=== PATIENT | male | born 2000 | race Hispanic/Latino ===

== ENCOUNTER 2020-02-05 21:11 | Emergency (ER) | payer MEDICAID, SELFPAY ==
[2020-02-05 21:12] VITALS: BP 132/74; PULSE 118; RESP 16; TEMP 37.1; O2SAT 96; BMI 21.0
--- NOTE | 2020-02-05 21:27 | RAD_ITS ---
STUDY: X-RAY - LEFT SHOULDER REASON FOR EXAM: Male, 19 years old. left shoulder injury yesterday TECHNIQUE: 3 view(s) of the shoulder. COMPARISON: None. FINDINGS: The clavicle is fractured in the mid segment with mild superior angulation without displacement. AC joint is located. Glenohumeral joint is intact and located with intact proximal humerus. Left lung apex is clear. RAD/Shoulder min 2 Views IMPRESSION: Mid clavicular fracture. Electronically Signed: Dick Birch, at 21:49 EDT Tel , Service support ,
--- NOTE | 2020-02-05 21:33 | ED.VIS.GEN ---
History of Present Illness Chief Complaint: Upper Extremity Injury Informant: Patient Narrative: 19-year-old male presents with left shoulder pain. States that he was roughhousing with a friend last night whenever he picked him up and dropped him to the ground. States that he has had pain in his left shoulder since that time. States it is aching and worse with movement. States that he did take ibuprofen with minimal relief. The pain is an 8 out of 10. Denies any head trauma or loss of consciousness. Denies any sensory changes. Past Medical History - Allergies and Home Meds Allergies/Adverse Reactions: Allergies No Known Allergies Allergy (Verified 02/05/20 21:13) Primary Care Physician: Janna Khan NP-C [Primary Care Provider] - Past Medical History: None Surgical History: no surgical history Lives: With Family Smoking Status: Never smoker Alcohol: None Drugs: None Review of Systems General: Denies: Chills, Fever, Sweats Eyes: Denies: Visual changes - bilaterally, Diplopia ENT: Denies: Rhinorrhea, Sore throat Cardiovascular: Denies: Chest pain, Palpitations Respiratory: Denies: Dyspnea, Cough, Dyspnea on exertion Gastrointestinal: Denies: Abdominal pain, Nausea, Vomiting, Diarrhea, Melena, Hematochezia Genitourinary: Denies: Dysuria, Hematuria, Frequency Musculoskeletal: Reports: Arthralgias. Denies: Back pain, Extremity Pain Skin: Denies: Rash, Wounds Neurological: Denies: Headache, Weakness, Numbness Physical Exam Vital Signs/Narrative: Vital Signs Temp Pulse Resp BP Pulse Ox 02/05/20 21:12 98.8 F 118 H 16 132/74 H 96 Inital Vital Signs reviewed: Yes General: Well nourished, Well developed, No Acute Distress Head: Normocephalic, Atraumatic Eyes: Perrl, EOMI ENT: Moist mucous membranes, No rhinorrhea Neck: Supple, Nontender Cardiovascular: Regular rate, Regular rhythm, No murmurs Respiratory: No distress, CTA bilaterally, Chest nontender Abdomen: Soft, Nontender, Nondistended, Normal bowel sounds Back: Nontender, Normal Inspection Extremities: Nontender, No edema, - - Tenderness to palpation over the distal clavicular head. Full range of motion passively of the left shoulder. No overlying skin changes. No change in sensation. Skin: Normal color, No rash Neurological: Alert, Oriented x3, Cranial nerves II-XII grossly intact, Normal Strength, Normal Sensation Psychological: Normal affect, Normal Mood Diagnostic/Tx/Re-eval Clinical Impression(s) from Imaging Studies Shoulder X-Ray 02/05/20 21:27 IMPRESSION: Mid clavicular fracture. Electronically Signed: Dick Birch, at 21:49 EDT Tel , Service support , - Medical Decision Making Appears well and nontoxic. No evidence of head trauma. Evidence of clavicular fracture. No tenting of the skin. Patient was given 1 oxycodone. Arm was placed in a sling. He will follow-up with orthopedic surgery. Short prescription was written for pain medication. Asked to return for any new or worsening symptoms. Patient agreeable and discharged home in stable condition. ED Disposition - Plan for ED Patient: Disposition: Home or Assisted Living Diagnosis: Clavicle fracture Instructions: ED Clavicle Fracture Prescriptions: Oxycodone HCl/Acetaminophen [Percocet 5/325] 1 tablet PO Q6H PRN PRN 2 Days #6 tablet PRN Reason: Pain Score 6-10/10 Transmission Status: Received by [id number] Referrals: Janna Khan, TREVON-C [Primary Care Provider] - Tamiko Camacho DO [STAFF PHYSICIAN] -
[2020-02-05 22:09] VITALS: RESP 18
[2020-02-05] MEDS: oxyCODONE 5 MG Tablet PO (22:16)
== END 2020-02-05 22:21 | disposition home or self-care (01) ==
PROVIDERS: Emergency Provider Emergency Medicine; PCP Nurse Practitioner
DX: S42.018A Nondisplaced fracture of sternal end of left clavicle, initial encounter for closed fracture (principal); W04.XXXA Fall while being carried or supported by other persons, initial encounter; Y93.83 Activity, rough housing and horseplay; Y92.9 Unspecified place or not applicable; Y99.8 Other external cause status
CPT/HCPCS: 73030; 99283

== ENCOUNTER 2021-03-02 15:45 | Emergency (ER) | payer MEDICAID, SELFPAY ==
[2021-03-02 15:46] VITALS: BP 127/86; PULSE 75; RESP 14; TEMP 36.8; O2SAT 98; BMI 27.8
--- NOTE | 2021-03-02 16:04 | CT_ITS ---
STUDY: CT BRAIN WITHOUT CONTRAST REASON FOR EXAM: Male, 20 years old. altered mental status RADIATION DOSAGE (If Supplied By Facility): CTDIvol = ( 44.99 ) mGy, DLP = ( 846.73 ) mGycm TECHNIQUE: Transaxial CT imaging of the brain was performed without administration of intravenous contrast material. Individualized dose optimization techniques were used for this CT. COMPARISON: No relevant priors. FINDINGS: Normal soft tissue structures. Normal calvarium. Normal size ventricles and extra-axial spaces for the patient''s age. Normal white matter tracts of the cerebral hemispheres. Normal basal ganglia and thalami. Normal brainstem. Normal cerebellum. There is no intracranial hemorrhage. There are no findings of an acute ischemic infarction. Normal visualized paranasal sinuses. CT/Brain/Head without Contrast IMPRESSION: Normal unenhanced CT scan of the brain. Electronically Signed: Jace Hoyt MD ([place]) at 16:57 EDT , Service support ,
[2021-03-02 16:25] LABS: Absolute Lymphocyte Count 1.88 X10^3/uL (0.83-4.51); Absolute Neutrophil Count 2.9 X10^3/uL (2.0-7.7); Basophil# 0.05 X10^3/uL; Basophil% 0.9 % (0-1); Eosinophil# 0.05 X10^3/uL; Eosinophils% 0.9 % (0-5); Hematocrit 47.7 % (40-54); Hemoglobin 15.9 g/dL (13.0-16.5); Lymphocyte # 1.88 X10^3/ul (0.83-4.51); Lymphocyte % 34.7 % (19-41); Mean Corp Hgb Conc 33.3 g/dL (32-36); Mean Corpuscular Hgb 30.8 pg (27.0-32.0); Mean Corpuscular Volume 92.3 fL (80-94); Mean Platelet Vol. 9.7 fl (6.2-12.0); Monocyte# 0.58 X10^3/uL; Monocyte% 10.7 % (0-10); NRBC Flagged by Analyzer 0 % (0-5); Neutrophil # 2.85 X10^3/uL (2.7-7.7); Neutrophil % 52.6 % (47-70); Platelet Count 353 K/mm3 (150-450); RBC Distribution Width CV 12.6 % (11.6-14.6); RBC Distribution Width SD 43.1 fl (35.1-43.9); Red Blood Count 5.17 M/mm3 (4.6-6.2); White Blood Count 5.4 K/mm3 (4.4-11.0)
--- NOTE | 2021-03-02 16:25 | EDS_ITS ---
HPI HPI - Psych History of Present Illness Chief Complaint: Mental Health Informant: patient Narrative Narrative: 20-year-old male presents the emergency department with a chief complaint of intrusive thoughts. Patient's triage complaint is to rule out appendicitis but the patient states he made that up because this was too personal than he did when his friend here. He states that over the past week he has had extremely intrusive thoughts pretty much 24 hours a day. He is unsure if he is actually talking to a real human being or not. He notes that he was raised by his grandmother. His father was never around and his mother became addicted to opiates and has been in alf. He states he was never really allowed to talk about his feelings with his grandmother and always told him that being depressed and anxious is not real. He states that he has had some occasional thoughts of suicide but it is not something that he would consider acting upon but as a way to stop these thoughts today. He states that a couple months ago micaela orr did have a suicide plan of drowning. He denies any auditory or visual hallucinations. He denies any drug use. He is working a few hours a week at [employer]. Patient states he has been sleeping more than normal but it is difficult to get to bed. He went to urgent care as he did not know where to go and they referred him here. [facility] Home Medications NK 03/02/21 [History Last Taken Unknown] Allergy/AdvReac Type Severity Reaction Status Date / Time No Known Allergies Allergy Verified 03/02/21 15:47 Social History (Updated 03/02/21 @ 16:[address] Vinayak Aiken, DO) Smoking Status: Never smoker substance use type: does not use ROS ROS ED Constitutional Constitutional ED: Denies chills or weight loss Eyes Eyes: Denies change in vision or diplopia ENT ENT ED: Denies ear pain, rhinorrhea or sore throat Cardiovascular Cardiovascular: Denies chest pain, orthopnea, palpitations or racing heartbeat Respiratory/Chest Respiratory/Chest: Denies cough, dyspnea or orthopnea Gastrointestinal Gastrointestinal: Denies abdominal pain, diarrhea, nausea or vomiting Genitourinary Genitourinary ED: Denies dysuria, hematuria or urinary frequency Musculoskeletal Musculoskeletal: Denies arthralgias or myalgias Integumentary Denies abscess or rash Neurologic Neurologic: Denies headache(s) or weakness Psychiatric Psychiatric: Reports anxiety, depression, suicidal thoughts and other; Denies suicidal ideation Endocrine Endocrinology: Denies polydipsia, polyphagia or polyuria Allergic/Immunologic Allergic/Immunologic ED: Denies mouth swelling, tongue swelling or urticaria EXAM Physical Exam Const Vital Signs: 03/02/21 15:46 Temperature 98.2 F Temperature Source Temporal Pulse Rate 75 Respiratory Rate 14 Blood Pressure 127/86 H Blood Pressure Mean 99 Pulse Ox 98 Oxygen Delivery Method Room Air Positive well nourished and well developed General Appearance ED: well developed HEENT Reports normocephalic, head/scalp atraumatic and moist mucous membranes Eyes PERRL and EOMs intact bilaterally Neck no lymphadenopathy, supple and no JVD Resp normal respiratory effort and clear to auscultation bilaterally Cardio regular rate, regular rhythm and no murmurs GI normal to inspection, nondistended, normoactive bowel sounds and non-tender Palpation: soft Back/Spine no CVA tenderness and normal ROM Extremity normal to inspection General Extremety ED: Negative for edema General Extremity: Negative for edema Neuro oriented x3 and CN's II-XII intact bilaterally Sensorium / Orientation: alert Motor Exam: strength 5/5 throughout Psych mental status grossly normal Psych Narrative: Patient makes occasional eye contact. He seems visibly upset with his thoughts. He denies auditory visual hallucinations. No homicidality. He appears internally stimulated. He appears paranoid. Mood & Affect: depressed and anxious; Negative for tearful Skin no rashes or lesions noted and no wounds MDM MDM MDM Narrative Medical decision making narrative: Patient medically cleared. CT the brain negative. Patient was assessed by case management and are in agreement that the patient would benefit from inpatient stabilization. I fear that he is progressing towards a psychotic break. Lab Data Attestation: I reviewed the patient's lab results. Labs: Laboratory Results - last 24 hr 03/02/21 03/02/21 03/02/21 16:20 16:20 16:20 WBC 5.4 RBC 5.17 Hgb 15.9 Hct 47.7 MCV 92.3 MCH 30.8 MCHC 33.3 RDW Std Deviation 43.1 RDW Coeff of Dre 12.6 Plt Count 353 MPV 9.7 Immature Gran % (Auto) 0.200 Neut % (Auto) 52.6 Lymph % (Auto) 34.7 Crane % (Auto) 10.7 H Eos % (Auto) 0.9 Baso % (Auto) 0.9 Absolute Neuts (auto) 2.9 Absolute Lymphs (auto) 1.88 Nucleated RBC % 0 Sodium 135 L Potassium 4.2 Chloride 106 Carbon Dioxide 26.0 Anion Gap 3 L BUN 10 Creatinine 1.03 Estim Creat Clear Calc 118.12 Est GFR (MDRD) Af Amer 117 Est GFR (MDRD) Non-Af 97 BUN/Creatinine Ratio 9.7 L Glucose 86 Calcium 9.2 Total Bilirubin 0.60 AST 14 L ALT 33 Alkaline Phosphatase 111 Total Protein 8.4 H Albumin 4.4 Globulin 4.0 Albumin/Globulin Ratio 1.1 TSH 0.91 Urine Opiates Screen Urine Methadone Screen Ur Barbiturates Screen Ur Phencyclidine Scrn Ur Amphetamines Screen U Methamphetamin-MDMA U Benzodiazepines Scrn Urine Cocaine Screen U Cannabinoids Screen Ur Drug Screen Comment Ethyl Alcohol < 3.0 03/02/21 16:38 WBC RBC Hgb Hct MCV MCH MCHC RDW Std Deviation RDW Coeff of Dre Plt Count MPV Immature Gran % (Auto) Neut % (Auto) Lymph % (Auto) Crane % (Auto) Eos % (Auto) Baso % (Auto) Absolute Neuts (auto) Absolute Lymphs (auto) Nucleated RBC % Sodium Potassium Chloride Carbon Dioxide Anion Gap BUN Creatinine Estim Creat Clear Calc Est GFR (MDRD) Af Amer Est GFR (MDRD) Non-Af BUN/Creatinine Ratio Glucose Calcium Total Bilirubin AST ALT Alkaline Phosphatase Total Protein Albumin Globulin Albumin/Globulin Ratio TSH Urine Opiates Screen NEGATIVE Urine Methadone Screen NEGATIVE Ur Barbiturates Screen NEGATIVE Ur Phencyclidine Scrn NEGATIVE Ur Amphetamines Screen NEGATIVE U Methamphetamin-MDMA NEGATIVE U Benzodiazepines Scrn NEGATIVE Urine Cocaine Screen NEGATIVE U Cannabinoids Screen NEGATIVE Ur Drug Screen Comment Ethyl Alcohol Radiography Diagnostic Testing: Radiology Impression Brain CT 03/02/21 16:04 IMPRESSION: Normal unenhanced CT scan of the brain. Electronically Signed: Jace Hoyt MD (Brooks) at 16:57 EDT , Service support , Discharge Plan Triage Chief Complaint: Mental Health ED Provider: Vinayak Aiken Dx/Rx/DC Orders Clinical Impression: Acute psychosis Prescriptions: No Action NK RF: 0 Primary Care Provider: Martinez Torres NP Referrals: Martinez Torres NP, SURVIVAL EQUIPMENT REPAIRER-C [Primary Care Provider] - Disposition Disposition: Psychiatric Hospital or Unit Discharge Location: [facility]
[2021-03-02 16:51] LABS: ALB/GLOB Ratio 1.1 RATIO (0.9-2.4); AST(SGOT) 14 U/L (15-37); Alanine Aminotransfer ALT/SGPT 33 U/L (16-61); Albumin, Serum 4.4 g/dL (3.2-5.0); Alkaline Phosphatase 111 U/L (45-117); Anion Gap 3 (5-15); BUN 10 mg/dL (7-18); BUN/Creat Ratio 9.7 RATIO (10-20); Calcium,Total 9.2 mg/dL (8.5-10.1); Chloride 106 mmol/L (98-107); Creatinine, Serum 1.03 mg/dL (0.70-1.30); EST Glomerular Filtration Rate 97 mL/min (>60); Est Glom Filt Rate - Afr Amer 117 mL/min (>60); Estimated Creatinine Clearance 118.12 ml/min; Glucose 86 mg/dL (74-106); Potassium 4.2 mmol/L (3.5-5.1); Protein, Total 8.4 g/dL (6.4-8.2); Sodium Level 135 mmol/L (136-145); Thyroid Stim Hormone (TSH) 0.91 uIU/mL (0.358-3.74)
[2021-03-02 16:57] LABS: Alcohol, Blood (Medical)-Serum < 3.0 mg/dL
[2021-03-02 17:02] LABS: Amphetamine Urine VISTA NEGATIVE (<1000 ng/mL); Barbiturate Urine VISTA NEGATIVE (< 200 ng/mL); Benzodiazepine Urine VISTA NEGATIVE (< 200 ng/mL); Cocaine Urine VISTA NEGATIVE (< 300 ng/mL); Ecstacy Urine VISTA NEGATIVE (< 500 ng/mL); Methadone Urine VISTA NEGATIVE (< 300 ng/mL); PCP Urine VISTA NEGATIVE (< 25 ng/mL); THC Urine VISTA NEGATIVE (< 50 ng/mL); Vista UDS pH Range 6
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
[2021-03-02 18:00] VITALS: RESP 17
--- NOTE | 2021-03-02 21:22 | CM.ED ---
BETH Note: SW made referral to [facility] to [place]. They indicated that they had beds. SW faxed referral form. SW called to confirm that [facility] had received referral. They said that they had not so this automobile and property underwriter faxed it to another fax number. [facility] called [facility] and spoke to Fabi. She said that she was not aware of the referral. She indicated she would look at it. SW called [facility] and spoke to Fabi. She said that she had not reviewed the information and if accepted it would not be till after 7am in the morning.SW advised that this automobile and property underwriter will look for another facility. SW called [facility] and made referral to Martin. SW received call from [facility]. He said that patient was accepted. Accepting MD is Dr. Flores. RN to RN is [phone]. Patient will be admitted to [address] [place] [address]. Patient and his roommate( patient gave permission) were updated by this automobile and property underwriter about placement. Patient was provided pamphlet on [facility]. [place] made referral for ambulance transport. Per Surgical Garment Inspector it will be 2 hours. Patient was updated it would be 2 hours. Plan: [facility] Harmony AGUILERA
--- NOTE | 2021-03-02 21:26 | ED.RN ---
CALLED FOR TRANSPORT TO [facility] AT [phone]
[2021-03-02 21:38] VITALS: BP 125/65; PULSE 74; RESP 14; RESP 16; TEMP 37; O2SAT 98
== END 2021-03-02 23:49 ==
PROVIDERS: Emergency Provider Emergency Medicine; PCP Nurse Practitioner Family
DX: F23 Brief psychotic disorder (principal)
CPT/HCPCS: 70450; 80053; 80307; 82077; 84443; 85025; 87426; 99285

== ENCOUNTER 2021-11-06 01:31 | Emergency (ER) | payer MEDICAID, SELFPAY ==
[2021-11-06 01:33] VITALS: BP 114/71; PULSE 127; RESP 18; TEMP 37.8; O2SAT 96; BMI 20.9
--- NOTE | 2021-11-06 01:52 | RAD_ITS ---
INDICATION: cough EXAMINATION/TECHNIQUE: X-RAY - XR Chest 2 Views COMPARISON: None. FINDINGS: LUNGS: No consolidation. No pneumothorax. MEDIASTINUM: Unremarkable. CARDIAC SILHOUETTE: Not enlarged. BONES AND SOFT TISSUES: No acute abnormalities. Old fracture of the left clavicle. IMPRESSION: Negative chest x-ray. Electronically Signed: Brooke Jalloh MD at 3:20 EDT , RAD/Chest PA and Lateral
--- NOTE | 2021-11-06 02:04 | EDS_ITS ---
HPI History of Present Illness Chief Complaint: General Illness Narrative Narrative: Patient is a 21-year-old male who states over the past 2 to 3 days he has noticed nasal congestion with sore throat and cough. He states he is also had muscle aches and pains and has noted a fever approximately 100 degrees at home. He denies any known sick contacts. He denies any dysuria or hematuria. He reports that because his fever is persisting and his symptoms are not improving with time he was concerned about an infectious process and therefore comes in for evaluation [facility] Medical History no medical history Home Medications azelastine 2 spray INTRANASAL BID #30 ml 11/06/21 [Rx Last Taken Unknown] methocarbamol 1,000 mg PO 4X/DAY PRN PRN #56 tab 11/06/21 [Rx Last Taken Unknown] prednisone 40 mg PO DAILY 5 Days #10 tab 11/06/21 [Rx Last Taken Unknown] Allergy/AdvReac Type Severity Reaction Status Date / Time No Known Allergies Allergy Verified 11/06/21 01:35 Surgical History no surgical history Social History (Updated 03/02/21 @ 16:[address] Vinayak Aiken, ) Smoking Status: Never smoker substance use type: does not use ROS ROS ED Constitutional Constitutional ED: Reports chills and fever(s) ENT ENT ED: Reports rhinorrhea and sore throat Cardiovascular Cardiovascular: Denies chest pain Respiratory/Chest Respiratory/Chest: Reports cough and dyspnea Gastrointestinal Gastrointestinal: Reports nausea; Denies abdominal pain, diarrhea or vomiting Genitourinary Genitourinary ED: Denies dysuria or hematuria Musculoskeletal Musculoskeletal: Reports back pain and myalgias Integumentary Denies rash Neurologic Neurologic: Denies headache(s) Hematologic/Lymphatic Hematologic/Lymphatic: Denies easy bleeding or easy bruising EXAM Physical Exam Const Vital Signs: 11/06/21 01:33 11/06/21 01:36 Temperature 100.1 F H Temperature Source Temporal Pulse Rate 127 H Respiratory Rate 18 Respiratory Effort Normal Respiratory Pattern Normal Blood Pressure 114/71 Blood Pressure Mean 85 Pulse Ox 96 Oxygen Delivery Method Room Air Positive well nourished and well developed General Appearance ED: well developed HEENT Reports moist mucous membranes HEENT Narrative: Bilateral TMs are retracted but show no secondary changes to suggest infection. Nasal mucosa is hyperemic and boggy with enlarged inferior nasal turbinate. There is cobblestoning the posterior pharynx consistent with sinus drainage as well as tonsillar hypertrophy but no exudates abscess formation airway edema or compromise. Eyes PERRL and EOMs intact bilaterally Neck supple Neck Narrative: Positive anterior cervical lymphadenopathy Resp normal respiratory effort and clear to auscultation bilaterally Cardio regular rhythm Rate: tachycardic GI normal to inspection, nondistended, normoactive bowel sounds, non-tender, non- distended and no masses Auscultation: normoactive bowel sounds Palpation: soft Back/Spine Back/Spine Narrative: No bony deformity or step-off of the thoracic or lumbar spine no midline pain on palpation. There is bilateral paralumbar muscle tension and spasm noted that worsens with palpation and motion Extremity normal to inspection Neuro oriented x3 and CN's II-XII intact bilaterally Sensorium / Orientation: alert Motor Exam: strength 5/5 throughout Psych mental status grossly normal Skin no rashes or lesions noted MDM MDM MDM Narrative Medical decision making narrative: Patient presented to the ER with low-grade fever but otherwise in no acute distress. His constellation of symptoms are viral in nature but with his sore throat and fever and cough I did elect to perform viral swabs as well as a chest x-ray. Influenza swab was negative strep swab is negative as well and his chest x-ray reveals no acute finding. After treatment he reports feeling better and he remains in no acute respiratory distress. Therefore at this time as his exam and work-up is consistent with a viral infection and he has no signs of respiratory distress or need for supplemental oxygen patient is safe for discharge Radiography Diagnostic Testing: Clinical Impression(s) from Imaging Studies Chest X-Ray 11/06/21 01:52 X-rays interpreted by the emergency medicine physician reveals no acute infiltrate pneumothorax or pleural effusion Discharge Plan Triage Chief Complaint: General Illness ED Provider: Chinedu Trujillo Dx/Rx/DC Orders Clinical Impression: Acute upper respiratory infection, Myalgia Instructions: ED Myalgias, ED URI, Viral, No Abx (Adult) Prescriptions: New methocarbamol 500 mg tablet 1,000 mg PO 4X/DAY PRN PRN (Reason: Muscle pain/spasm) Qty: 56 RF: 0 azelastine 137 mcg (0.1 %) aerosol,spray 2 spray intranasal BID Qty: 30 RF: 0 prednisone 20 mg tablet 40 mg PO DAILY 5 Days Qty: 10 RF: 0 Primary Care Provider: Care Physician,No Primary Referrals: Mahanz Dozier DO [STAFF PHYSICIAN] - 1 Week if not improving Care Physician,No Primary [Primary Care Provider] - Activity Restrictions/Additional Instructions: Please take the medication as directed to help control your symptoms and make sure to continue with Tylenol and/or Motrin for fever control. Disposition Disposition: Home, Self Care
[2021-11-06] MEDS: Acetaminophen 500 MG Tablet 1000 MG PO (02:26)
[2021-11-06] MEDS: Orphenadrine 60 MG/2 ML Ampul IM (02:26)
== END 2021-11-06 05:24 | disposition home or self-care (01) ==
PROVIDERS: Emergency Provider Emergency Medicine; Visit Provider Emergency Medicine
DX: J06.9 Acute upper respiratory infection, unspecified (principal); M79.10 Myalgia, unspecified site
CPT/HCPCS: 71046; 87077; 87804; 87880; 99283

== ENCOUNTER 2022-07-07 11:36 | Emergency (ER) | payer MEDICAID, SELFPAY ==
[2022-07-07 11:36] VITALS: BP 114/59; PULSE 126; RESP 16; TEMP 38.4; O2SAT 100; BMI 24.5
[2022-07-07 12:39] VITALS: BP 114/59; PULSE 124; RESP 16; TEMP 38.4; O2SAT 100
--- NOTE | 2022-07-07 12:45 | EKG12_ITS ---
Test Reason : GENERAL Blood Pressure : / mmHG Vent. Rate : 118 BPM Atrial Rate : 118 BPM P-R Int : 128 ms QRS Dur : 080 ms QT Int : 310 ms P-R-T Axes : 084 080 066 degrees QTc Int : 434 ms Sinus tachycardia Otherwise normal ECG Confirmed by COLIN ROSAS, MOIRA ([id number]), marketing editor BARRON SAENZ ([id number]) on 07/09/2022 8:50:10 AM Referred By: Confirmed By:MOIRA SHAW MD
--- NOTE | 2022-07-07 12:45 | EDS_ITS ---
HPI <CHRIS Hernandez - Last Filed: 07/07/22 14:48> History of Present Illness Chief Complaint: General Illness Narrative Narrative: Patient presents today with flu-like symptoms that started last night. He states he has a fever, sore throat, nausea, body aches, some abdominal pain, and feels weak and dehydrated. Patient reports he also feels slightly short of breath and feels like he is going to pass out stating states I feel like my vision is going in and out and he feels lightheaded. He denies vomiting, diarrhea, sick contacts, and chest pain. PFSH <CHRIS Hernandez - Last Filed: 07/07/22 14:48> [facility] Home Medications azelastine 137 mcg (0.1 %) nasal spray aerosol 2 spray intranasal BID #30 mL 11/06/21 [Rx Last Taken Unknown] methocarbamol 500 mg tablet 1,000 mg PO 4X/DAY PRN PRN Muscle pain/spasm #56 tabs 11/06/21 [Rx Last Taken Unknown] prednisone 20 mg tablet 40 mg PO DAILY 5 days #10 tabs 11/06/21 [Rx Last Taken Unknown] ondansetron 4 mg disintegrating tablet 4 mg PO Q8H PRN nausea and vomiting #10 tabs 07/07/22 [Rx Last Taken Unknown] Allergy/AdvReac Type Severity Reaction Status Date / Time No Known Allergies Allergy Verified 11/06/21 01:35 Social History Smoking Status: Current every day smoker tobacco type: cigarettes substance use type: does not use ROS <CHRIS Hernandez - Last Filed: 07/07/22 14:48> ROS ED Constitutional Constitutional ED: Reports fever(s); Denies chills or sweats Eyes Eyes: Denies blurry vision or diplopia ENT ENT ED: Denies rhinorrhea or sore throat Cardiovascular Cardiovascular: Denies chest pain, palpitations or racing heartbeat Respiratory/Chest Respiratory/Chest: Reports shortness of breath with exertion; Denies cough, dyspnea, dyspnea on exertion, shortness of breath at rest or wheezing Gastrointestinal Gastrointestinal: Reports abdominal pain and nausea; Denies diarrhea or vomiting Genitourinary Genitourinary ED: Denies dysuria, hematuria or urinary frequency Musculoskeletal Musculoskeletal: Reports myalgias; Denies arthralgias or neck pain Integumentary Denies abscess, Abrasions or rash Neurologic Neurologic: Denies headache(s), paresthesias or weakness Psychiatric Psychiatric: Denies anxiety or depression EXAM <CHRIS Hernandez - Last Filed: 07/07/22 14:48> Physical Exam Const Vital Signs: 07/07/22 11:36 07/07/22 12:39 07/07/22 12:54 Temperature 101.2 F H 101.2 F H Temperature Source Temporal Temporal Pulse Rate 126 H 124 H Respiratory Rate 16 16 Respiratory Effort Normal Non-Labored Blood Pressure 114/59 L 114/59 L Blood Pressure Mean 77 77 Pulse Ox 100 100 Oxygen Delivery Method Room Air Room Air 07/07/22 13:37 07/07/22 13:37 Temperature 99.3 F H 99.3 F H Temperature Source Oral Oral Pulse Rate 117 H 117 H Respiratory Rate 17 17 Respiratory Effort Blood Pressure 112/61 112/61 Blood Pressure Mean 78 78 Pulse Ox 97 97 Oxygen Delivery Method Room Air Room Air Positive well nourished and well developed General Appearance ED: well developed and NAD HEENT Reports TM's clear and moist mucous membranes Negative for trauma or tenderness Tympanic Membrane ED: Yes TM's clear Throat: posterior oropharynx normal and uvula midline Eyes PERRL and EOMs intact bilaterally Neck No no lymphadenopathy and No supple Chest Wall inspection of chest normal and palpation of chest normal Resp normal respiratory effort and clear to auscultation bilaterally Auscultation: Negative for rales, rhonchi, wheezes or diminished lung sounds Cardio regular rate and no murmurs Rate: tachycardic GI normal to inspection, nondistended, normoactive bowel sounds and non-tender Palpation: soft; Negative for guarding Back/Spine Cervical Spine: Negative for cervical spine tenderness Thoracic Spine / Upper Back: Negative for thoracic spinal tenderness Lumbar Spine / Lower Back: Negative for lumbar spinal tenderness Extremity normal to inspection General Extremety ED: Negative for edema or tenderness General Extremity: Negative for edema Neuro oriented x3, CN's II-XII intact bilaterally and no sensory deficits noted Sensorium / Orientation: alert Motor Exam: strength 5/5 throughout Psych mental status grossly normal Skin no rashes or lesions noted, no wounds and skin turgor normal General Skin Exam: elasticity normal <Dr. Dima Anderson DO - Last Filed: 07/07/22 16:34> Physical Exam Const Vital Signs: 07/07/22 11:36 07/07/22 12:39 07/07/22 12:54 Temperature 101.2 F H 101.2 F H Temperature Source Temporal Temporal Pulse Rate 126 H 124 H Respiratory Rate 16 16 Respiratory Effort Normal Non-Labored Blood Pressure 114/59 L 114/59 L Blood Pressure Mean 77 77 Pulse Ox 100 100 Oxygen Delivery Method Room Air Room Air 07/07/22 13:37 07/07/22 13:37 Temperature 99.3 F H 99.3 F H Temperature Source Oral Oral Pulse Rate 117 H 117 H Respiratory Rate 17 17 Respiratory Effort Blood Pressure 112/61 112/61 Blood Pressure Mean 78 78 Pulse Ox 97 97 Oxygen Delivery Method Room Air Room Air MDM <Renuka Barrera PA - Last Filed: 07/07/22 14:48> MDM MDM Narrative Medical decision making narrative: EKG was obtained due to patient feeling like he was going to pass out. This showed sinus tachycardia. patient currently has a 101.2 F and is reporting body aches so he has been given Tylenol. He has been tested for COVID and flu. I have given him fluids and Zofran and upon reexamination he is feeling much better. He tested positive for COVID. He has been given a prescription for Zofran. I educated him on supportive care measures and have given him return instructions. I am comfortable with patient discharging home and patient is comfortable with plan. EKG Initial EKG: Attestation: I personally reviewed and interpreted this EKG as follows: Interpretation: Sinus Tachycardia Comments: [address] elevation, no signs of cardiac ischemia. This EKG has also been reviewed by attending ED physician. <Dr. Dima Anderson, - Last Filed: 07/07/22 16:34> [facility] Treatment and Re-Evaluation Narrative: I have personally performed a face to face assessment of the patient and have reviewed the ZENA Note. I performed a substantive portion of the visit including all aspects of the following. My james findings include: History: Patient presents with body aches, fever, and lightheadedness that began last night. Patient states he feels weak all over. Patient did not take his temperature at home but noticed that it was 102 when he came here. Patient admits to mild cough. Patient admits to some nausea but denies any vomiting. Patient admits to body aches and muscle aches. Exam: Vital signs showed a mild tachycardia of 126. Patient is febrile with a temperature of 101.2. Patient is in no acute distress. Oral mucosa is pink and moist. Neck is supple. Trachea is midline. There is no JVD. Heart was regular rate and rhythm. Lungs are clear and equal bilaterally. Abdomen is soft. Bowel sounds are normal. There is no tenderness. Cranial nerves II through XII are intact. There are no focal motor or sensory deficits. Medical Decision Making: EKG was obtained on my interpretation, it shows sinus tachycardia with a rate of 118. There are no acute ST or T wave changes. COVID-19 rapid antigen was obtained and was positive. Influenza A and influenza B rapid antigens were obtained and were negative. Patient was given IV fluids and Tylenol. Patient is feeling better on reevaluation. Patient was advised of his findings. Patient was instructed to drink plenty of fluids. Patient was instructed to take Tylenol or ibuprofen as needed for any aches or fevers. Patient was instructed to follow-up with his primary care physician in 5 to 7 days. Patient understood and was agreeable with the plan. All questions were answered. Discharge Plan Triage Chief Complaint: General Illness ED Midlevel Provider: Renuka Barrera ED Provider: Dima Anderson Dx/Rx/DC Orders Clinical Impression: COVID-19 Instructions: Caring for Someone Who Has COVID-19 Prescriptions: New ondansetron 4 mg tablet,disintegrating 4 mg PO Q8H PRN (Reason: nausea and vomiting) Qty: 10 0RF No Action methocarbamol 500 mg tablet 1,000 mg PO 4X/DAY PRN PRN (Reason: Muscle pain/spasm) Qty: 56 0RF azelastine 137 mcg (0.1 %) aerosol,spray 2 spray intranasal BID Qty: 30 0RF Rx Instructions: administer into each nostril prednisone 20 mg tablet 40 mg PO DAILY 5 Days Qty: 10 0RF Stand Alone Forms: ED Work / School Excuse Primary Care Provider: Kathryn Waller [employer] Referrals: Care Physician,No Primary [Non-Staff] - 1 Week if not improving Activity Restrictions/Additional Instructions: Please stay well-hydrated. Alternate Tylenol and ibuprofen every 4-6 hours for fever control. Please return if you develop any shortness of breath or difficulty breathing or worsening of symptoms. Disposition Disposition: Home, Self Care Discharge Date/Time: 07/07/22 14:03
[2022-07-07] MEDS: 0.9% Normal Saline 1,000 ML 999 ML IV (12:52)
[2022-07-07] MEDS: Ondansetron 4 MG/2 ML Vial IV (12:52)
[2022-07-07] MEDS: Acetaminophen 325 MG Tablet 650 MG PO (12:52)
--- NOTE | 2022-07-07 12:56 | ED.RN ---
Call Bharath Ray when discharged for ride,
[2022-07-07 13:37] VITALS: BP 112/61; PULSE 117; RESP 17; TEMP 37.4; O2SAT 97
== END 2022-07-07 14:03 | disposition home or self-care (01) ==
PROVIDERS: Emergency Provider Emergency Medicine; PCP Nurse Practitioner Family; Visit Provider Emergency Medicine
DX: U07.1 COVID-19 (principal); F17.210 Nicotine dependence, cigarettes, uncomplicated
CPT/HCPCS: 87428; 93005; 96361; 96374; 99283; J7030; A4216; J2405

== ENCOUNTER 2022-10-31 14:04 | Emergency (ER) | payer MEDICAID, SELFPAY ==
[2022-10-31 14:07] VITALS: BP 122/74; PULSE 116; RESP 16; TEMP 36.4; O2SAT 97; BMI 28.0
--- NOTE | 2022-10-31 14:27 | EDS_ITS ---
HPI History of Present Illness Chief Complaint: Nausea/Vomiting Informant: patient Narrative Narrative: Patient presents with nausea vomiting and some soft stools. He states he ate breakfast lunch and dinner last night. Everything seemed normal. But as the evening went on he started to get some mild nausea. He was able to go to bed. He woke up this morning he vomited the first time at about 8 AM. No blood is ever been seen. He has vomited a total of 3 maybe 4 times. He has had about 3 bowel movements. They have not been watery but they have been soft. He has some diffuse intermittent abdominal cramping that is mostly periumbilical. It has not moved or change positions. He has no back or flank pain. No fevers or chills. No urinary symptoms. He does have at least 1 other friend who has had same symptoms. He saw 1 more person today with the same symptoms as he was heading in here. On review of systems I find out he is actually on day 3 of amoxicillin. This was started for a right-sided earache. He is only taken 1 today because of the nausea and vomiting. He has no history of allergies to amoxicillin and has tolerated it before. Of note, his ear is feeling better. He has no chronic medical conditions. He has no routine medications he takes chronically. No known allergies No abdominal surgeries PFSH PFSH Home Medications amoxicillin 875 mg tablet 875 mg PO DAILY 10/31/22 [History Last Taken Unknown] ondansetron 4 mg disintegrating tablet 4 mg PO Q8H PRN PRN Nausea #10 tabs 10/31/22 [Rx Last Taken Unknown] promethazine 25 mg tablet 25 mg PO Q6H PRN PRN Nausea #10 TABLETS 10/31/22 [Rx Last Taken Unknown] Allergy/AdvReac Type Severity Reaction Status Date / Time No Known Allergies Allergy Verified 10/31/22 14:09 Social History Smoking Status: Current every day smoker tobacco type: cigarettes substance use type: does not use ROS ROS ED Constitutional Constitutional ED: Denies chills or fever(s) Eyes Eyes: Denies change in vision ENT ENT ED: Reports other Details: Ear pain is now gone ; Denies ear pain, rhinorrhea or sore throat Cardiovascular Cardiovascular: Denies chest pain Respiratory/Chest Respiratory/Chest: Denies cough or dyspnea Gastrointestinal Gastrointestinal: Reports abdominal pain, diarrhea, nausea and vomiting; Denies constipation or melena Genitourinary Genitourinary ED: Denies dysuria or urinary frequency Musculoskeletal Musculoskeletal: Denies myalgias Integumentary Denies rash Neurologic Neurologic: Denies headache(s) Endocrine Endocrinology: Denies polydipsia or polyuria Allergic/Immunologic Allergic/Immunologic ED: Denies urticaria EXAM Physical Exam Narrative Exam Narrative: Patient is awake alert no acute distress. He does look like he does not feel well though. HEENT: Mildly dry mucous membranes. No exudate. Of note, both the ears are clear without any significant fluid. There is no erythema. No sign of infection. Eyes show no icterus Neck shows no JVD or stridor Lungs are clear bilaterally and saturations are normal at 97% on room air showing no hypoxia. Heart is regular but is tachycardic at about 110. This is likely due to dehydration. It does sound regular and distal pulses are normal. Abdomen is soft, slightly increased bowel sounds nondistended. Abdomen is also not showing tenderness. He states he gets soreness around the umbilicus but is not tender. There is no hernia that I feel either. shows no CVA or suprapubic tenderness Extremities show no edema. Skin shows no rash Const Vital Signs: 10/31/22 14:07 Temperature 97.5 F L Temperature Source Temporal Pulse Rate 116 H Respiratory Rate 16 Blood Pressure 122/74 H Blood Pressure Mean 90 Pulse Ox 97 Oxygen Delivery Method Room Air MDM MDM MDM Narrative Medical decision making narrative: Patient's labs do show an elevated white count of 14 7. Hemoglobin platelets are normal. Electrolytes are overall relatively normal. Minimal decrease of sodium. Glucose is 110. Liver function test showed no marked abnormalities. Lipase is normal. I checked the patient. His nausea is gone. But he still having some pain. He states it seems a little bit more toward the right lower abdomen now. He still not really tender there. But with his white count nausea vomiting soft stools and migration we will get a CAT scan to further evaluate. Independent interpretation the patient's CT scan of the abdomen with IV contrast did not show any acute process. I suspect saw no sign of inflammation near the appendix or free air. Final reading is no acute process. I rechecked the patient. He is starting to develop some nausea again. But he would be due for medicines. I still think we can get him home. He wants some water to sip again. We discussed returning with recurrent vomiting uncontrolled with meds pain fever or other concerns Lab Data Attestation: I reviewed the patient's lab results. Labs: Laboratory Results - last 24 hr 10/31/22 10/31/22 14:44 14:44 WBC 14.7 H RBC 5.18 Hgb 16.0 Hct 48.1 MCV 92.9 MCH 30.9 MCHC 33.3 RDW Std Deviation 42.4 RDW Coeff of Dre 12.4 Plt Count 360 MPV 9.6 Immature Gran % (Auto) 0.500 Neut % (Auto) 89.4 H Lymph % (Auto) 3.5 L [place] % (Auto) 6.2 Eos % (Auto) 0.1 Baso % (Auto) 0.3 Absolute Neuts (auto) 13.2 H Absolute Lymphs (auto) 0.52 L Nucleated RBC % 0 Sodium 135 L Potassium 4.4 Chloride 105 Carbon Dioxide 26.0 Anion Gap 4 L BUN 16 Creatinine 1.07 Estim Creat Clear Calc 115.33 Est GFR (MDRD) Af Amer 111 Est GFR (MDRD) Non-Af 91 BUN/Creatinine Ratio 15.0 Glucose 110 H Calcium 9.3 Total Bilirubin 0.70 AST 48 H ALT 56 Alkaline Phosphatase 103 Total Protein 8.1 Albumin 4.0 Globulin 4.1 Albumin/Globulin Ratio 1.0 Lipase 119 Radiography Diagnostic Testing: Clinical Impression(s) from Imaging Studies Abdomen/Pelvis CT 10/31/22 15:29 IMPRESSION: No acute pathology of the abdomen and pelvis. Electronically Signed: Donte Dumas DO at 16:35 EDT , Discharge Plan Triage Chief Complaint: Nausea/Vomiting ED Provider: Ramsey Ray Dx/Rx/DC Orders Clinical Impression: Nausea vomiting and diarrhea, Medication reaction Instructions: ED Vomiting (Adult) Prescriptions: New promethazine [promethazine] 25 mg tablet 25 mg PO Q6H PRN PRN (Reason: Nausea) Qty: 10 0RF ondansetron [ondansetron] 4 mg tablet,disintegrating 4 mg PO Q8H PRN PRN (Reason: Nausea) Qty: 10 0RF No Action amoxicillin 875 mg tablet 875 mg PO DAILY Primary Care Provider: Kathryn Waller NP Referrals: Kathryn Waller NP, [employer] [facility] [Primary Care Provider] - 1-2 Days if not improving Activity Restrictions/Additional Instructions: Please stop your amoxicillin at this time. There is no indication of an ear infection. Disposition Disposition: Home, Self Care
[2022-10-31] MEDS: Dicyclomine 20 MG/2 ML Vial IM (14:41)
[2022-10-31] MEDS: 0.9% Normal Saline 1,000 ML 1000 ML IV (14:41)
[2022-10-31] MEDS: Ondansetron 4 MG/2 ML Vial IV (14:41)
[2022-10-31 14:48] LABS: Absolute Lymphocyte Count 0.52 X10^3/uL (0.83-4.51); Absolute Neutrophil Count 13.2 X10^3/uL (2.0-7.7); Basophil# 0.04 X10^3/uL; Basophil% 0.3 % (0-1); Eosinophil# 0.02 X10^3/uL; Eosinophils% 0.1 % (0-5); Hematocrit 48.1 % (40-54); Lymphocyte # 0.52 X10^3/ul (0.83-4.51); Lymphocyte % 3.5 % (19-41); Mean Corp Hgb Conc 33.3 g/dL (32-36); Mean Corpuscular Hgb 30.9 pg (27.0-32.0); Mean Corpuscular Volume 92.9 fL (80-94); Mean Platelet Vol. 9.6 fl (6.2-12.0); Monocyte# 0.92 X10^3/uL; Monocyte% 6.2 % (0-10); NRBC Flagged by Analyzer 0 % (0-5); Neutrophil # 13.16 X10^3/uL (2.7-7.7); Neutrophil % 89.4 % (47-70); POSITIVE DIFFERENTIAL YES; Platelet Count 360 K/mm3 (150-450); RBC Distribution Width CV 12.4 % (11.6-14.6); RBC Distribution Width SD 42.4 fl (35.1-43.9); Red Blood Count 5.18 M/mm3 (4.6-6.2); White Blood Count 14.7 K/mm3 (4.4-11.0)
[2022-10-31 14:49] LABS: Differential Indicated SCAN CRITERIA MET
[2022-10-31 15:09] LABS: AST(SGOT) 48 U/L (15-37); Alanine Aminotransfer ALT/SGPT 56 U/L (16-61); Alkaline Phosphatase 103 U/L (45-117); Anion Gap 4 (5-15); BUN 16 mg/dL (7-18); Calcium,Total 9.3 mg/dL (8.5-10.1); Chloride 105 mmol/L (98-107); Creatinine, Serum 1.07 mg/dL (0.70-1.30); EST Glomerular Filtration Rate 91 mL/min (>60); Est Glom Filt Rate - Afr Amer 111 mL/min (>60); Estimated Creatinine Clearance 115.33 ml/min; Globulin 4.1 g/dL (2.2-4.2); Glucose 110 mg/dL (74-106); Lipase 119 U/L (73-393); Potassium 4.4 mmol/L (3.5-5.1); Protein, Total 8.1 g/dL (6.4-8.2); Sodium Level 135 mmol/L (136-145)
--- NOTE | 2022-10-31 15:29 | CT_ITS ---
STUDY: CT ABDOMEN AND PELVIS WITH CONTRAST REASON FOR EXAM: Male, 22 years old. pain, NAUSEA/VOMITING RADIATION DOSAGE (If Supplied By Facility): CTDIvol = ( 16.56 ) mGy, DLP = ( 995.46 ) mGycm TECHNIQUE: Transaxial images were obtained from the dome of the diaphragm to the symphysis pubis without oral contrast. IV 100mL Isovue-300 was administered. Sagittal and coronal images were reconstructed. Individualized dose optimization techniques were used for this CT. COMPARISON: None. FINDINGS: The visualized lung bases are unremarkable. The visualized portions of the heart are within normal limits. Normal liver. Normal gallbladder and extrahepatic biliary system. Normal spleen. Normal pancreas. Normal bilateral adrenal glands. Subcentimeter cyst in the right kidney. Normal left kidney. Normal visualized stomach. Normal small intestine. Normal colon. The appendix is visualized and appears normal. Normal abdominal aorta. Normal inferior vena cava. Normal retroperitoneum. Normal urinary bladder. Normal abdominal wall. Normal osseous structures. CT/Abdomen/Pelvis W IV Cont ONLY IMPRESSION: No acute pathology of the abdomen and pelvis. Electronically Signed: Donte Dumas DO at 16:35 EDT Reading Location ID and State: [facility] / [place] Tel [phone], Service support ,
[2022-10-31 17:15] VITALS: BP 139/84; PULSE 71; RESP 18; O2SAT 98
== END 2022-10-31 17:16 | disposition home or self-care (01) ==
PROVIDERS: Emergency Provider Emergency Medicine; PCP Nurse Practitioner Family; Visit Provider Emergency Medicine
DX: R11.2 Nausea with vomiting, unspecified (principal); R19.7 Diarrhea, unspecified; T36.0X5A Adverse effect of penicillins, initial encounter; F17.210 Nicotine dependence, cigarettes, uncomplicated
CPT/HCPCS: 74177; 80053; 83690; 85025; 96361; 96372; 96374; 96375; 99283; Q9967; A4216; J2405

== ENCOUNTER 2024-12-31 12:17 | Emergency (ER) | payer MEDICAID, SELFPAY ==
[2024-12-31 12:18] VITALS: BP 151/85; PULSE 86; RESP 16; TEMP 36.8; O2SAT 99; BMI 32.1
--- NOTE | 2024-12-31 12:30 | US_ITS ---
EXAM: US Duplex Arterial/Venous of the Testicles, Complete CLINICAL INDICATION: PAIN ON LEFT TECHNIQUE: Real-time duplex ultrasound scan of the scrotal contents integrating B-mode two-dimensional vascular structure, Doppler spectral analysis and color flow Doppler imaging. COMPARISON: No relevant prior studies available. FINDINGS: RIGHT TESTICLE: Unremarkable. Normal blood flow on color and spectral Doppler imaging. The right testicle measures 4.6 x 3.0 x 2.0 cm. LEFT TESTICLE: Unremarkable. Normal blood flow on color and spectral Doppler imaging. The left testicle measures 4.4 x 3.0 x 2.2 cm. EPIDIDYMIDES: Right epididymis measures 0.6 x 1.2 x 1.4 cm. Left epididymis measures 0.8 by 1.4 x 1.0 cm. SCROTUM: Left scrotal wall measures up to 7 mm thick. This may represent cellulitis. No organized abscess. US/Testicular with Arterial Flow IMPRESSION: Left scrotal wall measures up to 7 mm thick. This may represent cellulitis. N o organized abscess. Reading Location: [id number]
--- NOTE | 2024-12-31 12:35 | EX.ED.GUMALE ---
HPI <CHRIS Newman - Last Filed: 12/31/24 16:42> History of Present Illness Chief Complaint: Male Pain/Injury Narrative Narrative: 24-year-old male presents with left testicular pain that started 5 days ago after waking up. It is a constant aching pain the only thing that seems to make it better is lying down. Occasionally when he is working it makes him feel nauseated without vomiting. He has also had some generalized abdominal discomfort. No dysuria, hematuria, or frequency or penile discharge. No rashes or lesions. He states he has not been sexually active for a year. No history of abdominal or testicular surgery. <Dr. Benny Reynaga DO - Last Filed: 12/31/24 19:39> Narrative Narrative: 24-year-old male presents with left testicular pain that started 5 days ago after waking up. It is a constant aching pain the only thing that seems to make it better is lying down. Occasionally when he is working it makes him feel nauseated without vomiting. <del>He</del> <del>has</del> <del>also</del> <del>had</del> <del>some</del> <del>generalized</del> <del>abdominal</del> <del>discomfort</del>. No dysuria, hematuria, or frequency or penile discharge. No rashes or lesions. He states he has not been sexually active for a year. No history of abdominal or testicular surgery. PFSH <CHRIS Newman - Last Filed: 12/31/24 16:42> [facility] Medical History no medical history Home Medications ?Medication ?Instructions ?Recorded ?Last Taken ?Type cephalexin 500 mg capsule 500 mg PO Q6 5 days #20 CAPSULES 12/31/24 Unknown Rx naproxen 500 mg tablet (Naprosyn) 500 mg PO BID PRN pain #20 tabs 12/31/24 Unknown Rx Allergy/AdvReac Type Severity Reaction Status Date / Time No Known Allergies Allergy Verified 12/31/24 12:18 Social History Smoking Status: Current some day smoker tobacco type: cigarettes substance use type: does not use ROS <CHRIS Newman - Last Filed: 12/31/24 16:42> ROS ED ROS Narrative Constitutional: Negative for fever, chills, malaise. GI: Positive for abdominal pain, nausea. Negative for vomiting. : Negative for dysuria, hematuria or frequency. EXAM <CHRIS Newman - Last Filed: 12/31/24 16:42> Physical Exam Narrative Exam Narrative: CONST: Patient sitting in no acute distress. EYES: Normal inspection. NECK: Normal inspection. RESP: No respiratory distress, CTAB. CVS: Regular rate and rhythm, no murmur, no gallop. ABD: Soft with bilateral lower quadrant tenderness, no guarding or rebound, nondistended. : High riding left testicle. No warmth, swelling, erythema or lesions. No tenderness. Cremasteric reflex intact. SKIN: Color normal, no rash, warm, dry, intact. EXTREMITIES: Normal appearance, no pedal edema. NEURO: Alert and answering questions appropriately. PSYCH: Normal affect. Const Vital Signs: 12/31/24 12:18 12/31/24 14:19 12/31/24 15:10 Temperature 98.2 F 98 F Temperature Source Oral Pulse Rate 86 78 74 Respiratory Rate 16 18 16 Blood Pressure 151/85 H 143/79 H 138/78 H Blood Pressure Mean 107 100 98 Pulse Ox 99 98 99 Oxygen Delivery Method Room Air Room Air <Dr. Benny Reynaga DO - Last Filed: 12/31/24 19:39> Physical Exam Narrative Exam Narrative: CONST: Patient sitting in no acute distress. EYES: Normal inspection. NECK: Normal inspection. RESP: No respiratory distress, CTAB. CVS: Regular rate and rhythm, no murmur, no gallop. ABD: Soft with <del>bilateral</del> <del>lower</del> <del>quadrant</del> <del>tenderness</del>, no guarding or rebound, nondistended. : High riding left testicle. No warmth, swelling, erythema or lesions. No tenderness. Cremasteric reflex intact. SKIN: Color normal, no rash, warm, dry, intact. EXTREMITIES: Normal appearance, no pedal edema. NEURO: Alert and answering questions appropriately. PSYCH: Normal affect. Const Vital Signs: 12/31/24 12:18 12/31/24 14:19 12/31/24 15:10 Temperature 98.2 F 98 F Temperature Source Oral Pulse Rate 86 78 74 Respiratory Rate 16 18 16 Blood Pressure 151/85 H 143/79 H 138/78 H Blood Pressure Mean 107 100 98 Pulse Ox 99 98 99 Oxygen Delivery Method Room Air Room Air [facility] <CHRIS Newman - Last Filed: 12/31/24 16:42> [facility] Narrative Medical decision making narrative: 24-year-old male has 5 days of left testicular pain. He appears well and nontoxic. Vital stable. Left testicle is high riding. Cremasteric reflex intact. There is no swelling or tenderness or skin changes. Urinalysis had 1 bilirubin but is otherwise negative. He states he has not been sexually active for 1 year so I did not send STI testing. CBC and BMP are normal. Due to the urine I added a liver profile which is also normal. Scrotal ultrasound shows left scrotal wall thickening which could be possible cellulitis. No torsion. I prescribed Keflex and naproxen, recommended scrotal support, and provided urology follow-up. He was discharged in stable condition. Supervisory Physician Note Patient was seen and examined with the Advanced Practice Provider. Nursing notes and vital signs have been reviewed. Pertinent old records have been reviewed. I agree with the essential elements of the ZENA's history, physical exam, assessment, and plan. The differential diagnosis and management options were discussed with the ZENA. I participated in determining and agree with the management, procedures, final impression and disposition as documented. See changes noted by me. Please see addendum or separate note for any additional details. 24-year-old male presents for evaluation of left testicular pain. Onset 5 days ago. Denies any trauma or injury. Denies sexually activity. No concern for STI. Associated symptom is mild nausea. Denies any fever, chills, emesis, abdominal pain, dysuria, hematuria, penile discharge testicular swelling. Gen: A&O x3, NAD Head: Normocephalic, atraumatic Eyes: No sclera icterus, conjunctiva clear ENT: Moist mucous membranes Neck: Trachea midline, No JVD CV: RRR, no murmurs, no peripheral edema Resp: Lungs CTA BL, no w/r/c GI: Abd soft, non-distended, non-tender, no r/r/g : No CVA tenderness : Circumcised penis. No penile tenderness or discharge. No penile or testicular swelling. Left testicle hide raising compared to the right-patient does not know if this is new or baseline. Left testicle is tender to palpation diffusely without masses or skin changes. No rash or lesions. No erythema or warmth. Cremasteric reflexes intact and equal bilaterally. No palpable hernias. Musc: Full ROM, no deformity Skin: Warm, dry Neuro: Alert, oriented, grossly intact, sensation intact Psych: Cooperative, appropriate mood and affect Differential diagnosis includes but is not limited to epididymitis, testicular torsion, testicular neoplasm, UTI. Patient denies any abdominal pain to me. He is nontender on physical exam. I do not think any imaging of the abdomen is needed. Will obtain basic labs including urine and testicular ultrasound. CBC without leukocytosis or anemia. CMP unremarkable. UA positive for blood but negative for UTI. Ultrasound of the testicles shows left scrotal wall measuring up to 7 mm thick. They represent cellulitis. No organized abscess. Clinical exam is not consistent with cellulitis however given patient's pain will place him on a course of Keflex. Return precautions explained. Follow-up with urology. Patient confirmed understanding of plan. Naproxen as needed for pain with Tylenol. Impression: 1. Left testicular tenderness 2. Left scrotal wall thickening, possible cellulitis Lab Data Labs: Laboratory Results - last 24 hr 12/31/24 12/31/24 12:42 12:44 WBC 8.0 RBC 4.81 Hgb 15.0 Hct 44.3 MCV 92.1 MCH 31.2 MCHC 33.9 RDW Std Deviation 42.3 RDW Coeff of Dre 12.5 Plt Count 365 MPV 9.8 Immature Gran % (Auto) 0.100 Neut % (Auto) 41.6 L Lymph % (Auto) 41.8 H [place] % (Auto) 13.8 H Eos % (Auto) 1.8 Baso % (Auto) 0.9 Absolute Neuts (auto) 3.3 Absolute Lymphs (auto) 3.33 Nucleated RBC % 0 Sodium 138 Potassium 3.5 Chloride 103 Carbon Dioxide 24.5 Anion Gap 11 BUN 16 Creatinine 1.06 Estim Creat Clear Calc 132.10 Est GFR (MDRD) Non-Af 101 BUN/Creatinine Ratio 14.8 Glucose 90 Calcium 9.1 Total Bilirubin 0.33 Direct Bilirubin 0.14 AST 18 ALT 26 Alkaline Phosphatase 97 Total Protein 7.6 Albumin 4.5 Globulin 3.1 Urine Color Yellow Urine Clarity Sl. Cloudy Urine pH 6.0 Ur Specific [place] 1.025 Urine Protein 30 H Urine Glucose (UA) Normal Urine Ketones Negative Urine Occult Blood 25 H Urine Nitrite Negative Urine Bilirubin 1 H Urine Urobilinogen Normal Ur Leukocyte Esterase Negative Urine RBC 0-5 SEEN Urine WBC 0-5 SEEN Ur Squamous Epith Cells 0-5 SEEN Urine Bacteria RARE Urine Mucus RARE Radiography Diagnostic Testing: Clinical Impression(s) from Imaging Studies Testicular Ultrasound 12/31/24 12:30 IMPRESSION: Left scrotal wall measures up to 7 mm thick. This may represent cellulitis. No organized abscess. Reading Location: [id number] <[facility]anMur[facility]ert, DO - Last Filed: 12/31/24 19:39> [facility] MDM Narrative Medical decision making narrative: Supervisory Physician Note Patient was seen and examined with the Advanced Practice Provider. Nursing notes and vital signs have been reviewed. Pertinent old records have been reviewed. I agree with the essential elements of the ZENA's history, physical exam, assessment, and plan. The differential diagnosis and management options were discussed with the ZENA. I participated in determining and agree with the management, procedures, final impression and disposition as documented. See changes noted by me. Please see addendum or separate note for any additional details. 24-year-old male presents for evaluation of left testicular pain. Onset 5 days ago. Denies any trauma or injury. Denies sexually activity. No concern for STI. Associated symptom is mild nausea. Denies any fever, chills, emesis, abdominal pain, dysuria, hematuria, penile discharge testicular swelling. Gen: A&O x3, NAD Head: Normocephalic, atraumatic Eyes: No sclera icterus, conjunctiva clear ENT: Moist mucous membranes Neck: Trachea midline, No JVD CV: RRR, no murmurs, no peripheral edema Resp: Lungs CTA BL, no w/r/c GI: Abd soft, non-distended, non-tender, no r/r/g : No CVA tenderness : Circumcised penis. No penile tenderness or discharge. No penile or testicular swelling. Left testicle hide raising compared to the right-patient does not know if this is new or baseline. Left testicle is tender to palpation diffusely without masses or skin changes. No rash or lesions. No erythema or warmth. Cremasteric reflexes intact and equal bilaterally. No palpable hernias. Musc: Full ROM, no deformity Skin: Warm, dry Neuro: Alert, oriented, grossly intact, sensation intact Psych: Cooperative, appropriate mood and affect Differential diagnosis includes but is not limited to epididymitis, testicular torsion, testicular neoplasm, UTI. Patient denies any abdominal pain to me. He is nontender on physical exam. I do not think any imaging of the abdomen is needed. Will obtain basic labs including urine and testicular ultrasound. CBC without leukocytosis or anemia. CMP unremarkable. UA positive for blood but negative for UTI. Ultrasound of the testicles shows left scrotal wall measuring up to 7 mm thick. They represent cellulitis. No organized abscess. Clinical exam is not consistent with cellulitis however given patient's pain will place him on a course of Keflex. Return precautions explained. Follow-up with urology. Patient confirmed understanding of plan. Naproxen as needed for pain with Tylenol. Impression: 1. Left testicular tenderness 2. Left scrotal wall thickening, possible cellulitis Lab Data Labs: Laboratory Results - last 24 hr 12/31/24 12/31/24 12:42 12:44 WBC 8.0 RBC 4.81 Hgb 15.0 Hct 44.3 MCV 92.1 MCH 31.2 MCHC 33.9 RDW Std Deviation 42.3 RDW Coeff of Dre 12.5 Plt Count 365 MPV 9.8 Immature Gran % (Auto) 0.100 Neut % (Auto) 41.6 L Lymph % (Auto) 41.8 H [place] % (Auto) 13.8 H Eos % (Auto) 1.8 Baso % (Auto) 0.9 Absolute Neuts (auto) 3.3 Absolute Lymphs (auto) 3.33 Nucleated RBC % 0 Sodium 138 Potassium 3.5 Chloride 103 Carbon Dioxide 24.5 Anion Gap 11 BUN 16 Creatinine 1.06 Estim Creat Clear Calc 132.10 Est GFR (MDRD) Non-Af 101 BUN/Creatinine Ratio 14.8 Glucose 90 Calcium 9.1 Total Bilirubin 0.33 Direct Bilirubin 0.14 AST 18 ALT 26 Alkaline Phosphatase 97 Total Protein 7.6 Albumin 4.5 Globulin 3.1 Urine Color Yellow Urine Clarity Sl. Cloudy Urine pH 6.0 Ur Specific [place] 1.025 Urine Protein 30 H Urine Glucose (UA) Normal Urine Ketones Negative Urine Occult Blood 25 H Urine Nitrite Negative Urine Bilirubin 1 H Urine Urobilinogen Normal Ur Leukocyte Esterase Negative Urine RBC 0-5 SEEN Urine WBC 0-5 SEEN Ur Squamous Epith Cells 0-5 SEEN Urine Bacteria RARE Urine Mucus RARE Radiography Diagnostic Testing: Clinical Impression(s) from Imaging Studies Testicular Ultrasound 12/31/24 12:30 IMPRESSION: Left scrotal wall measures up to 7 mm thick. This may represent cellulitis. No organized abscess. Reading Location: [facility] Discharge Plan Triage Chief Complaint: Male Pain/Injury ED Midlevel Provider: Mahnaz Miner ED Provider: Benny Reynaga Dx/Rx/DC Orders Clinical Impression: Left testicular pain, Cellulitis of scrotum Instructions: ED Testicular Pain, Unclear Cause Prescriptions: New naproxen [Naprosyn] 500 mg tablet 500 mg PO BID PRN (Reason: pain) Qty: 20 0RF cephalexin 500 mg capsule 500 mg PO Q6 5 Days Qty: 20 0RF Primary Care Provider: Kathryn Waller NP Referrals: Kraig Langford MD [Med Staff - Active Staff] - Kathryn Waller NP, [facility] [Primary Care Provider] - Activity Restrictions/Additional Instructions: The ultrasound showed that your left testicle has thickening which could be cellulitis which is an infection of the skin. I prescribed antibiotics and pain medicine. Wear tight compressive boxers for support and pain relief. If it is not feeling better over the next few days call the urologist for an appointment. Print Language: [place] Disposition Disposition: Home, Self Care Discharge Date/Time: 12/31/24 15:13
[2024-12-31] MEDS: Ketorolac 15 MG/ML Vial IV (12:46)
[2024-12-31 12:49] LABS: Absolute Lymphocyte Count 3.33 X10^3/uL (0.83-4.51); Absolute Neutrophil Count 3.3 X10^3/uL (2.0-7.7); Basophil# 0.07 X10^3/uL; Basophil% 0.9 % (0-1); Eosinophil# 0.14 X10^3/uL; Eosinophils% 1.8 % (0-5); Hematocrit 44.3 % (40-54); Lymphocyte # 3.33 X10^3/ul (0.83-4.51); Lymphocyte % 41.8 % (19-41); Mean Corp Hgb Conc 33.9 g/dL (32-36); Mean Corpuscular Hgb 31.2 pg (27.0-32.0); Mean Corpuscular Volume 92.1 fL (80-94); Mean Platelet Vol. 9.8 fl (6.2-12.0); Monocyte% 13.8 % (0-10); NRBC Flagged by Analyzer 0 % (0-5); Neutrophil # 3.32 X10^3/uL (2.7-7.7); Neutrophil % 41.6 % (47-70); Platelet Count 365 K/mm3 (150-450); RBC Distribution Width CV 12.5 % (11.6-14.6); RBC Distribution Width SD 42.3 fl (35.1-43.9); Red Blood Count 4.81 M/mm3 (4.6-6.2)
[2024-12-31 12:50] LABS: Color, Urine Yellow (Yellow); Glucose, Dipstick Normal (Normal); Ketone-Dipstick Negative (Negative); Leukocyte Esterase-Dipstick Negative /ul (Negative); Nitrite-Dipstick Negative (Negative); Occult Blood-Urine 25 /ul (Negative); Protein-Dipstick 30 mg/dl (Negative); Specific Gravity, Urine 1.025 (1.002-1.030); Urine Clarity Sl. Cloudy (Clear); Urine Urobilinogen Normal (Normal)
[2024-12-31 12:56] LABS: Red Blood Cells-Urine 0-5 SEEN /hpf (0-5); Urine Bilirubin Dipstick 1 mg/dL (Negative); White Blood Cells 0-5 SEEN /hpf (0-5)
[2024-12-31 12:57] LABS: Bacteria RARE /hpf (None Seen); Mucous, Urine RARE /hpf (<or=2+); Squamous Epithelial Cells - UA 0-5 SEEN /hpf (0-5)
[2024-12-31 13:07] LABS: Anion Gap 11 (5-15); BUN 16 mg/dL (4-19); BUN/Creat Ratio 14.8 RATIO (10-20); Calcium,Total 9.1 mg/dL (7.6-11.0); Carbon Dioxide 24.5 mmol/L (21.0-32.0); Chloride 103 mmol/L (98-108); Creatinine, Serum 1.06 mg/dL (0.70-1.20); EST Glomerular Filtration Rate 101 (>60); Glucose 90 mg/dL (70-99); Potassium 3.5 mmol/L (3.3-5.1); Sodium Level 138 mmol/L (133-145)
[2024-12-31 14:19] VITALS: BP 143/79; PULSE 78; RESP 18; O2SAT 98
[2024-12-31 14:49] LABS: AST(SGOT) 18 U/L (<=37); Alanine Aminotransfer ALT/SGPT 26 U/L (<=46); Albumin, Serum 4.5 g/dL (3.5-5.0); Alkaline Phosphatase 97 U/L (40-129); Bilirubin, Direct 0.14 mg/dL (0.00-0.30); Globulin 3.1 g/dL (2.2-4.2); Protein, Total 7.6 g/dL (5.9-8.4); Total Bilirubin 0.33 mg/dL (0.00-1.30)
[2024-12-31] MEDS: Cephalexin 250 MG Capsule 500 MG PO (15:04)
[2024-12-31 15:10] VITALS: BP 138/78; PULSE 74; RESP 16; TEMP 36.6; O2SAT 99
== END 2024-12-31 15:13 | disposition home or self-care (01) ==
PROVIDERS: Physician Assistant; Emergency Provider Surgery; PCP Nurse Practitioner Family; Visit Provider Surgery
DX: N50.812 Left testicular pain (principal); F17.210 Nicotine dependence, cigarettes, uncomplicated
CPT/HCPCS: 76870; 80048; 80076; 81001; 85025; 93976; 96374; 99283; A4216